=== PATIENT | female | born 1975 | race Caucasian/White ===

== ENCOUNTER 2017-07-19 03:01 | Outpatient (CLI) | END 2017-07-19 03:02 | disposition home or self-care (01) | LOC: AMBL 03:01 | PROVIDERS: ATTEND Internal Medicine Geriatric Medicine | DX: T48.1X1A Poisoning by skeletal muscle relaxants [neuromuscular blocking agents], accidental (unintentional), initial encounter (principal); T42.4X1A Poisoning by benzodiazepines, accidental (unintentional), initial encounter; T42.6X1A Poisoning by other antiepileptic and sedative-hypnotic drugs, accidental (unintentional), initial encounter; T51.0X1A Toxic effect of ethanol, accidental (unintentional), initial encounter; R40.4 Transient alteration of awareness; R47.81 Slurred speech; F32.9 Major depressive disorder, single episode, unspecified ==